=== PATIENT | male | born 1960 | race Caucasian/White ===

== ENCOUNTER → 2017-10-11 | Outpatient (CLI) | payer BC ==
[2012-12-14 07:39] VITALS: BP 163/94
[2017-10-11 10:26] LABS: ALANINE AMINOTRANSFERASE 48 Units/L (12-78); ALBUMIN 3.7 g/dL (3.4-5.0); ALKALINE PHOSPHATASE 77 Units/L (46-116); ASPARTATE AMINO TRANSFERASE 21 Units/L (15-37); BLOOD UREA NITROGEN 16 mg/dL (7-18); CALCIUM 8.8 mg/dL (8.5-10.1); CARBON DIOXIDE 31.4 mmol/L (21-32); CHLORIDE 104 mmol/L (98-107); CHOL/HDL RATIO 5.1 (0.0-5.0); CHOLESTEROL 198 mg/dL (0-200); CREATININE 1.16 mg/dL (0.70-1.30); HDL CHOLESTEROL 39 mg/dL (40-60); SODIUM 142 mmol/L (136-145); TOTAL PROTEIN 7.1 g/dL (6.4-8.2); TRIGLYCERIDES 120 mg/dL (0-150); eGFR BLACK RACES > 60 (>60); eGFR NON BLACK RACES > 60 (>60)
== END ==
LOC: LAB 08:32
PROVIDERS: ATTEND Family Medicine
DX: I10 Essential (primary) hypertension (principal); E78.4 Other hyperlipidemia
CPT/HCPCS: 36415; 80053; 80061

== ENCOUNTER 2018-02-05 21:59 | Emergency (ER) | payer BC ==
[2018-02-05 22:09] VITALS: BMI 26.5
[2018-02-05 22:25] LABS: BILIRUBIN,URINE NEGATIVE (NEGATIVE); BLOOD/HEMOGLOBIN,URINE NEGATIVE (NEGATIVE); GLUCOSE, URINE NEGATIVE (NEGATIVE); KETONES,URINE NEGATIVE (NEGATIVE); LEUKOCYTE ESTERASE ,URINE NEGATIVE (NEGATIVE); NITRITES,URINE NEGATIVE (NEGATIVE); PROTEIN,URINE NEGATIVE (NEGATIVE); UROBILINOGEN,URINE NORMAL (NORMAL)
[2018-02-05 22:29] LABS: APPEARANCE,URINE CLEAR (CLEAR); COLOR,URINE YELLOW (YELLOW)
[2018-02-05] MEDS ORDERED: NS 1000 ML 1,000 ML IV ONE (23:23)
[2018-02-05] MEDS ORDERED: TORADOL 30 MG VIAL IVP ONE (23:23)
--- NOTE | 2018-02-05 23:24 | DR.GENAD ---
HPI - PCP Primary Care Physician: - Complaint/Symptoms Chief Complaint Doctors Comments: Right flank pain radiating towards groin. Onset was about 2130 hrs. He describes this as a theobbing, constant pain. He has nausea. Its intensity is rated an 8 on a scale of 0 to 10. He denies hematuria. Chief Complaint:: Complaing of right lower back. Pt thinks he has a kidney stone. - Nurses notes reviewed Nurses Notes Review: Yes - Source History Provided: Patient - Mode of Arrival Mode of Arrival: Ambulatory - Timing Onset of Chief Complaint: 02/05/18 Came on: Suddenly PMH - PMH Past Medical History: Yes Past Medical History: Hypertension, Kidney Stones Past Surgical History: Yes Surgical History: Bowel Resection Past Surgical History Comment: Ruptured colon surgery 15 years ago - Family History History of Family Medical Conditions: Yes Family Medical History: Diabetes Mellitus, Coronary Artery Disease - Social History Alcohol Use: None Do you use any recreational Drugs:: No - infectious screening In the last 2 months have you had wt loss of >10#?: NO Have you had fever, night sweats or hemotysis?: No Have you traveled outside the country in the last 6 months?: No Isolation: Standard ROS - Review of Systems Constitutional: No Symptoms Reported Eyes: No Symptoms Reported ENTM: No Symptoms Reported Respiratoy: No Symptoms Reported Cardiovascular: No Symptoms Reported Gastrointestinal/Abdominal: Nausea Genitourinary: Other (flank psin) Neurological: No Symptoms Reported Musculoskeletal: No Symptoms Reported Integumentary: No Symptoms Reported Hematologic/Lymphatic: No Symptoms Reported Endocrine: No Symptoms Reported Psychiatric: No Symptoms Reported All Other Systems: Reviewed and Negative PE - Vital Signs Vitals: Temperature 98.8 F Pulse Rate [Right Brachial] 84 Pulse Rate 87 Respiratory Rate 18 Blood Pressure [Right Arm] 147/77 Blood Pressure 155/87 O2 Sat by Pulse Oximetry 97 - General Limitations: No Limitations General Appearance: Alert, In No Apparent Distress, In Distress (pain related) - Head Head Exam: Normal Inspection - Eyes Eye exam: Normal Appearance - ENT ENT Exam: Normal Exam - Neck Neck Exam: Normal Inspection - Chest Chest Inspection: Normal Inspection - Respiratory Respiratory Exam: Normal Lung Sounds Bilat Respiratory Exam: Bilateral Clear to Auscultation - Cardiovascular Cardiovascular Exam: Regular Rate, Normal Rhythm, +S1, +S2 - Abdominal Exam Abdominal Exam: Normal Inspection, Normal Bowel Sounds, Soft Abdominal Tenderness: Other (Rt. flank) - Extremities Extremities Exam: Normal Inspection - Back Back Exam: Normal Inspection - Neurologic Neurological Exam: Alert, Oriented X3 - Psychiatric Psychiatric Exam: Normal Affect, Normal Mood - Skin Skin Exam: Warm, Dry, Intact, Normal Color Course - Reevaluation 1st: Improved - Education/Counseling Education/Counseling: Patient, Family, Education, Counseling Educated On: Treatment, Diagnosis, Prognosis, Needs for Follow Up ROR - Labs Reviewed Result Diagrams: 02/05/18 23:30 02/05/18 23:30 Laboratory: WBC 12.7 X10^3/uL (3.6-10.0) H 02/05/18 23:30 RBC 5.05 X10^6/uL (4.7-6.0) 02/05/18 23:30 Hgb 15.7 g/dL (13.5-18.0) 02/05/18 23:30 Hct 44.3 % (42.0-54.0) 02/05/18 23:30 MCV 87.6 fL (80.0-100.0) 02/05/18 23:30 MCH 31.1 pg (27.0-34.0) 02/05/18 23:30 MCHC 35.5 g/dL (33.0-35.0) H 02/05/18 23:30 RDW 12.5 % (11.6-16.5) 02/05/18 23:30 Plt Count 262 X10^3/uL (150.0-450.0) 02/05/18 23:30 MPV 7.3 fL (7.4-11.0) L 02/05/18 23:30 Neut % (Auto) 78.1 % (42.0-75.0) H 02/05/18 23:30 Lymph % (Auto) 15.6 % (21.0-51.0) L 02/05/18 23:30 [place] % (Auto) 5.1 % (0.0-13.0) 02/05/18 23:30 Eos % (Auto) 0.9 % (0.9-2.9) 02/05/18 23:30 Baso % (Auto) 0.3 % (0.2-1.0) 02/05/18 23:30 Neut # (Auto) 9.9 x10^3/uL (2.2-4.8) H 02/05/18 23:30 Lymph # (Auto) 2.0 X10^3/uL (1.3-2.9) 02/05/18 23:30 [place] # (Auto) 0.7 x10^3/uL (0.3-0.8) 02/05/18 23:30 Eos # (Auto) 0.1 x10^3/uL (0.0-0.2) 02/05/18 23:30 Baso # (Auto) 0.0 X10^3/uL (0.0-0.1) 02/05/18 23:30 Absolute Nucleated RBC 0.0 /100WBC 02/05/18 23:30 Sodium 141 mmol/L (136-145) 02/05/18 23:30 Corrected Sodium 142 mmol/L (136-145) 02/05/18 23:30 Potassium 4.0 mmol/L (3.5-5.1) 02/05/18 23:30 Chloride 104 mmol/L (98-107) 02/05/18 23:30 Carbon Dioxide 28.7 mmol/L (21-32) 02/05/18 23:30 BUN 16 mg/dL (7-18) 02/05/18 23:30 Creatinine 1.45 mg/dL (0.70-1.30) H 02/05/18 23:30 Est GFR (MDRD) Af Amer > 60 (>60) 02/05/18 23:30 Est GFR (MDRD) Non-Af 54 (>60) L 02/05/18 23:30 Glucose 123 mg/dL (65-99) H 02/05/18 23:30 Calcium 8.8 mg/dL (8.5-10.1) 02/05/18 23:30 Corrected Calcium TNP 02/05/18 23:30 Total Bilirubin 0.40 mg/dL (0.2-1.0) 02/05/18 23:30 AST 25 Units/L (15-37) 02/05/18 23:30 ALT 54 Units/L (12-78) 02/05/18 23:30 Alkaline Phosphatase 82 Units/L (46-116) 02/05/18 23:30 Total Protein 7.1 g/dL (6.4-8.2) 02/05/18 23:30 Albumin 3.6 g/dL (3.4-5.0) 02/05/18 23:30 Globulin 3.5 g/dL (2.5-4.5) 02/05/18 23:30 Albumin/Globulin Ratio 1.0 Ratio (1.1-2.1) L 02/05/18 23:30 Specimen Type Clean catch urine 02/05/18 22:17 Urine Color Yellow (YELLOW) 02/05/18 22:17 Urine Appearance Clear (CLEAR) 02/05/18 22:17 Urine pH 7.0 (5.0 - 8.0) 02/05/18 22:17 Ur Specific [place] 1.015 (1.000-1.030) 02/05/18 22:17 Urine Protein Negative (NEGATIVE) 02/05/18 22:17 Urine Glucose (UA) Negative (NEGATIVE) 02/05/18 22:17 Urine Ketones Negative (NEGATIVE) 02/05/18 22:17 Urine Occult Blood Negative (NEGATIVE) 02/05/18 22:17 Urine Nitrite Negative (NEGATIVE) 02/05/18 22:17 Urine Bilirubin Negative (NEGATIVE) 02/05/18 22:17 Urine Urobilinogen Normal (NORMAL) 02/05/18 22:17 Ur Leukocyte Esterase Negative (NEGATIVE) 02/05/18 22:17 - XRAY XRAY Interpreted by: Radiologist (Renal protocol CT Scan: A 4 mmstone within the distal right ureter, causing moderate hydronephrosis with moderate right perinephricc stranding.) - Diagnosis Discharge Problem: Ureterolithiasis, Renal colic on right side - Discharge Plan Disposition: 01 HOME, SELF-CARE Condition: Stable Prescriptions: Oxycodone HCl/Acetaminophen [Oxycodone/Acetaminophen 10-325 mg] 1 tab PO Q4-6H PRN #20 tab PRN Reason: Severe Pain Promethazine HCl 12.5 mg PO Q4H PRN #20 tablet PRN Reason: - Follow ups/Referrals Follow ups/Referrals: GREGORY MORILLO [Primary Care Provider] - 3 days - Instructions Instructions: Kidney Stones, [id number]
[2018-02-05 23:36] LABS: BASOPHILS % (AUTO) 0.3 % (0.2-1.0); EOSINOPHILS # (AUTO) 0.1 x10^3/uL (0.0-0.2); EOSINOPHILS % (AUTO) 0.9 % (0.9-2.9); HEMATOCRIT 44.3 % (42.0-54.0); HEMOGLOBIN 15.7 g/dL (13.5-18.0); LYMPHOCYTES % (AUTO) 15.6 % (21.0-51.0); MEAN CORPUSCULAR HEMOGLOBIN 31.1 pg (27.0-34.0); MEAN CORPUSCULAR HGB CONC 35.5 g/dL (33.0-35.0); MEAN CORPUSCULAR VOLUME 87.6 fL (80.0-100.0); MEAN PLATELET VOLUME 7.3 fL (7.4-11.0); MONOCYTES # (AUTO) 0.7 x10^3/uL (0.3-0.8); MONOCYTES % (AUTO) 5.1 % (0.0-13.0); NEUTROPHILS # (AUTO) 9.9 x10^3/uL (2.2-4.8); NEUTROPHILS % (AUTO) 78.1 % (42.0-75.0); PLATELET COUNT 262 X10^3/uL (150.0-450.0); RED BLOOD COUNT 5.05 X10^6/uL (4.7-6.0); RED CELL DISTRIBUTION WIDTH 12.5 % (11.6-16.5); WHITE BLOOD COUNT 12.7 X10^3/uL (3.6-10.0)
[2018-02-05] MEDS ORDERED: TORADOL 30 MG VIAL ONE (23:37)
[2018-02-05] MEDS ORDERED: NS 1000 ML 1,000 ML ONE (23:45)
[2018-02-05 23:46] LABS: ALANINE AMINOTRANSFERASE 54 Units/L (12-78); ALBUMIN 3.6 g/dL (3.4-5.0); ALKALINE PHOSPHATASE 82 Units/L (46-116); ASPARTATE AMINO TRANSFERASE 25 Units/L (15-37); BLOOD UREA NITROGEN 16 mg/dL (7-18); CALCIUM 8.8 mg/dL (8.5-10.1); CARBON DIOXIDE 28.7 mmol/L (21-32); CHLORIDE 104 mmol/L (98-107); COR NA(FOR HYPERGLY) 142 mmol/L (136-145); CREATININE 1.45 mg/dL (0.70-1.30); SODIUM 141 mmol/L (136-145); TOTAL PROTEIN 7.1 g/dL (6.4-8.2); eGFR BLACK RACES > 60 (>60); eGFR NON BLACK RACES 54 (>60)
--- NOTE | 2018-02-06 00:17 | CT ---
CT abdomen and pelvis without contrast Indication: Right flank pain Comparison: None available Technique: Multiple axial images of the abdomen and pelvis were obtained from the lung bases to the pubic symphy sis without the administration of IV contrast. Findings: The visualized portions of the lung bases are unremarkable. The bony structures are grossly intact. Given the limitations of lack of IV contrast administration the liver, gallbladder, spleen, pancreas, and adrenal glands are unremarkable in their CT appearance. There is a 4 mm stone within the distal right ureter causing moderate hydronephrosis seen on axial im age 71. No left-sided ureteral stone or hydronephrosis. Multiple punctate nonobstructing stones are n oted within the left kidney in within the midpole of the right kidney. No bowel wall thickening or bowel dilatation is present. Previous anastomosis within the distal loop of small bowel is noted. The colon and rectum are unremarkable. The urinary bladder is grossly unrem arkable. Prostate gland demonstrates central dystrophic calcifications. No mesenteric lymphadenopathy or stranding can be observed. No free fluid or free air is seen within the abdomen. IMPRESSION: 1. An approximate 4 mm stone within the distal right ureter causes moderate hydronephrosis with reac tive moderate right-sided perinephric stranding. 2. Punctate bilateral nonobstructing nephrolithiasis. 3. Refer to above for other incidental findings. Reported By:
[2018-02-06] MEDS ORDERED: DILAUDID INJ IVP ONE (00:33)
[2018-02-06] MEDS ORDERED: NS 1000 ML 1,000 ML ONE (00:36)
[2018-02-06] MEDS ORDERED: DILAUDID INJ ONE (00:36)
[2018-02-06 00:46] VITALS: BP 147/77
== END 2018-02-06 01:14 | disposition home or self-care (01) ==
LOC: ER 21:59
DX: N20.1 Calculus of ureter (principal); N23 Unspecified renal colic
CPT/HCPCS: 36415; 74176; 80053; 81003; 85025; 96365; 96374; 96375; 99283; 99284; A4222; J1170; J1885